=== PATIENT | female | born 1955 | race Caucasian/White ===

== ENCOUNTER 2017-12-09 12:39 | Emergency (ER) | payer OTHER ==
[~2017-12-09] VITALS: Ht 170.2 cm; Wt 79.8 kg
[~2017-12-09 12:39] MED LIST: ALBU8.5H8 INH; EZET10TA13 PO; OMEG500C PO; OMEP40CA37 PO; RIVA10TA PO; VALS80TA2 PO
[2017-12-09] MEDS ORDERED: SIMVASTATIN 20 MG TABLET (12:45)
[2017-12-09] MEDS ORDERED: CHLORHEXIDINE 0.12% (12:45)
[2017-12-09] MEDS ORDERED: OMEPRAZOLE DR 40 MG CAPSULE (12:45)
[2017-12-09] MEDS ORDERED: RINSE (12:45)
[2017-12-09] MEDS ORDERED: CETIRIZINE HCL 10 MG TABLET (12:46)
--- NOTE | 2017-12-09 12:56 | NUR ---
PT HAQD SALINE LOCK D/C'D INTACT. ACI GIVEN. PT BECAME ANGRY STATED HE HATED EVERYONE AND LEFT ER. PT TOOK ALL BELONGINGS, AMBULATED W/O DIFF.
--- NOTE | 2017-12-09 12:56 | NUR ---
Note tiana in EDM - 12/09/17 at 1257 by JOLIE PT HAQD SALINE LOCK D/C'D INTACT. ACI GIVEN. PT BECAME ANGRY STATED HE HATED EVERYONE AND LEFT ER. PT TOOK ALL BELONGINGS, AMBULATED W/O DIFF.
[2017-12-09 13:08] LABS: BASOPHILS % (AUTO) 0.3 % (0.0-2.0); EOSINOPHILS % (AUTO) 0.7 % (0.0-7.0); HEMATOCRIT 38.4 % (31.2-41.9); HEMOGLOBIN 13.1 g/dL (10.9-14.3); LYMPHOCYTES # (AUTO) 1.4 K/uL (20.0-40.0); MEAN CORPUSCULAR HEMOGLOBIN 30.7 uug (24.7-32.8); MEAN CORPUSCULAR HGB CONC 34 g/dL (32.3-35.6); MEAN CORPUSCULAR VOLUME 90.2 fL (75.5-95.3); MONOCYTES # (AUTO) 0.4 K/uL (2.0-10.0); MONOCYTES % (AUTO) 6.2 % (0.0-11.0); NEUTROPHILS # (AUTO) 3.9 K/uL (1.8-8.9); NEUTROPHILS % (AUTO) 68.8 % (38.5-71.5); PLATELET COUNT (AUTO) 222 K/uL (179-408); RED BLOOD CELL COUNT(AUTO) 4.25 MIL/uL (3.63-4.92); WHITE BLOOD COUNT (AUTO) 5.7 K/uL (3.8-11.8)
[2017-12-09 13:16] LABS: CREATININE 0.6 mg/dL (0.6-1.3); POTASSIUM 3.7 mmol/L (3.5-5.1)
[2017-12-09 13:30] LABS: BILIRUBIN,DIRECT 0.1 mg/dL (0.0-0.2); BILIRUBIN,TOTAL 0.3 mg/dL (0.2-1.0); TOTAL PROTEIN, SERUM 7.7 g/dL (6.4-8.2)
[2017-12-09] MEDS ORDERED: ALBUTEROL SULFATE 2.5 MG/3 ML NEBU NEB ONE (14:45)
[2017-12-09] MEDS ORDERED: IPRATROPIUM BROMIDE 0.5 MG/2.5 ML NEBU NEB ONE (14:45)
--- NOTE | 2017-12-09 15:00 | NUR ---
Patient discharged to home in stable conditon. Written and verbal after care instructions given. Patient verbalizes understanding of instructions.pt says feels better, ready to be d/darryl. pt walks in steady gait, breathing normally.
[2017-12-09] MEDS ORDERED: IPRATROPIUM BROMIDE 0.5 MG/2.5 ML NEBU ONE (15:01)
[2017-12-09] MEDS ORDERED: ALBUTEROL SULFATE 2.5 MG/ 0.5 ML NEBU ONE (15:01)
[2017-12-09 15:47] VITALS: BP 139/89
== END 2017-12-09 15:00 | disposition home or self-care (01) ==
LOC: ER 12:39
DX: R06.02 Shortness of breath (principal); I10 Essential (primary) hypertension; I25.2 Old myocardial infarction; I70.0 Atherosclerosis of aorta; K21.9 Gastro-esophageal reflux disease without esophagitis; Z88.0 Allergy status to penicillin
CPT/HCPCS: 36415; 70030-TC; 71045; 85025; 85730; 93005; A4663; J3590; J7030

== ENCOUNTER 2018-03-27 15:49 | Emergency (ER) | payer OTHER ==
[~2018-03-27] VITALS: Ht 170.2 cm; Wt 80.7 kg
[~2018-03-27 15:49] MED LIST changes: +CETIRIZINE HCL 10 MG TABLET; +CHLORHEXIDINE 0.12%; +OMEPRAZOLE DR 40 MG CAPSULE; +RINSE; -RIVA10TA PO; +SIMVASTATIN 20 MG TABLET
[2018-03-27] MEDS ORDERED: MAG HYDROX/AL HYDROX/SIMETH 30 ML LIQUID UDC ONE ×2 (16:13→16:42)
[2018-03-27] MEDS ORDERED: DICYCLOMINE HCL 10 MG/5 ML UDC LIQ ONE ×2 (16:14→16:42)
[2018-03-27] MEDS ORDERED: DICYCLOMINE HCL 10 MG/5 ML UDC LIQ PO ONE ×2 (16:15→16:45)
[2018-03-27] MEDS ORDERED: MAG HYDROX/AL HYDROX/SIMETH 30 ML LIQUID UDC PO ONE ×2 (16:15→16:45)
[2018-03-27] MEDS ORDERED: AMLO5TAB4 PO (16:19)
[2018-03-27] MEDS ORDERED: ROSU5TAB PO (16:19)
[2018-03-27] MEDS ORDERED: ASPI81TA31 PO (16:19)
--- NOTE | 2018-03-27 16:35 | NUR ---
Pt states feeling better w/ burning in the chest but not completely gone. made aware.
[2018-03-27 17:05] VITALS: BP 156/90
--- NOTE | 2018-03-27 17:19 | NUR ---
Patient discharged to home in stable conditon. Written and verbal after care instructions given. Patient verbalizes understanding of instructions.
== END 2018-03-27 17:20 | disposition home or self-care (01) ==
LOC: ER 15:54
DX: K21.9 Gastro-esophageal reflux disease without esophagitis (principal); I10 Essential (primary) hypertension; Z88.0 Allergy status to penicillin; Z79.82 Long term (current) use of aspirin; Z79.899 Other long term (current) drug therapy
CPT/HCPCS: 93005; A4663